=== PATIENT | female | born 1995 | race Caucasian/White ===

== ENCOUNTER 2017-05-15 12:44 | Emergency (ER) | payer BC ==
[~2017-05-15] VITALS: Ht 157.5 cm; Wt 47.8 kg
[~2017-05-15 12:44] MED LIST: ABILIFY5 MG PO; BUPROPION HCL100 M1 PO; DAILY VALUE1 EACH PO; Desyrel PO; IMITREX100 MG PO; JUNEL FE 1/21 TABLET PO; LAMICTAL100 MG PO; LAMICTAL200 MG PO; LATUDA20 MG PO; MIRALAX, GLYCOL1 PK1 PO; NEOSPORIN OINTM30 GM TP; ORTHO CYCLEN1 TABLET PO; PROZAC40 MG PO; SINGULAIR10 MG PO; TRAZODONE HCL50 MG PO
[2017-05-15 14:08] LABS: HEMATOCRIT 38.5 % (36.0-46.0); MCH 31.2 PG (29.0-34.0); MCHC 34.8 G/DL (30.0-36.0); MCV 89.5 FL (83-99); MEAN PLAT.VOLUME 9.6 uM^3 (9.5-12.4); PLATELET COUNT 227 K/uL (156-360); RBC DIS.WIDTH-CV 11.7 % (11.8-14.6); RBC DIS.WIDTH-SD 38.1 % (39-53); WHITE BLOOD COUNT 5.4 K/uL (4.1-10.2)
[2017-05-15 14:15] LABS: CHLORIDE 106 mEq/L (99-109); POTASSIUM 3.9 mEq/L (3.7-5.4); SODIUM 140 mEq/L (136-147)
[2017-05-15 14:18] LABS: GLUCOSE 102 mg/dL (70-99)
[2017-05-15 14:19] LABS: ANION GAP 10 MEQ/L (2-14)
[2017-05-15 14:20] LABS: TOTAL BILIRUBIN 0.3 mg/dL (0.0-1.0)
[2017-05-15 14:21] LABS: ALKALINE PHOSPHATASE 39 IU/L (3-129); GFR ESTIMATE (CALCULATED) > 59 mL/min/
[2017-05-15 14:22] LABS: UREA NITROGEN (BUN) 7 mg/dL (9-23)
[2017-05-15 14:31] LABS: QUANTITATIVE HCG < 4.0 MIU/ML
[2017-05-15] MEDS ORDERED: TRAMADOL HCL50 MG PO (15:34)
[2017-05-15] MEDS ORDERED: STOOL SOFTENER100 MG PO (15:34)
[2017-05-15 15:56] LABS: ADD MIUA? YES; BILIRUBIN NEGATIVE; BLOOD NEGATIVE; COLOR AMBER ((YELLOW)); GLUCOSE (STRIP) NEGATIVE; KETONES NEGATIVE; LEUKOCYTES TRACE; NITRITE NEGATIVE; PROTEIN (STRIP) NEGATIVE; SPECIFIC GRAVITY 1.013 (1.000-1.030); UROBILINOGEN 0.2 MG/DL (0.2-1.0)
[2017-05-15 16:17] LABS: RED BLOOD CELLS NONE SEEN /HPF (0-5)
[2017-05-15 16:18] LABS: BACTERIA NONE SEEN /HPF; EPITHELIAL CELLS RARE /HPF; MUCUS NONE SEEN /LPF; UCUL ADDED? NO; WHITE BLOOD CELLS RARE /HPF (0-5)
[2017-05-15 16:21] LABS: LIPASE 20 U/L (1.0-51.0)
[2017-05-15] MEDS ORDERED: CITRATE OF MAG296 ML PO (17:31)
[2017-05-15 18:10] VITALS: BP 97/73
== END 2017-05-15 18:10 | disposition home or self-care (01) ==
LOC: EME 12:44
DX: R10.32 Left lower quadrant pain (principal); Z88.5 Allergy status to narcotic agent; Z88.8 Allergy status to other drugs, medicaments and biological substances
CPT/HCPCS: 74022; 76856; 80053; 81003; 83690; 84702; 85027; 99281; 99284; J0696

== ENCOUNTER → 2017-08-07 | Outpatient (CLI) | payer BC ==
[~2017-08-07] MED LIST changes: +CITRATE OF MAG296 ML PO; +STOOL SOFTENER100 MG PO; +TRAMADOL HCL50 MG PO
[2017-08-07 17:24] LABS: CSF TUBE NUMBER TUBE #4
[2017-08-07 17:25] LABS: APPEARANCE CLEAR/COLORLESS; RED CELL COUNT 0 /MM^3 (0-1); WHITE CELL COUNT 0 /MM^3 (0-5)
[2017-08-07 17:26] LABS: CSF PROTEIN 37 mg/dL (15-45)
[2017-08-07 17:28] LABS: CSF EOSINOPHILS ND % (0-25); MONONUCLEAR WBC'S ND % (50-90); POLYNUCLEAR WBC'S ND % (0-3)
[2017-08-07 17:31] LABS: GLUCOSE, CSF 70 mg/dL (40-80)
[2017-08-09 21:06] LABS: Albumin, CSF 17.1 mg/dL (8.0-42.0); IgG Index, CSF 0.53 index (<0.66); IgG, CSF 1.4 mg/dL (0.8-7.7); IgG, Serum 767 mg/dL (694-1618); Synthesis Rate IgG, CSF -1.9 mg/24 h (-9.9-3.3)
== END | disposition home or self-care (01) ==
LOC: RAD 14:50
PROVIDERS: Psychiatry & Neurology Clinical Neurophysiology
PROC: 009U3ZZ Drainage of Spinal Canal, Percutaneous Approach (ICD-10-PCS; principal; 2017-08-07)
DX: G37.9 Demyelinating disease of central nervous system, unspecified (principal); G93.2 Benign intracranial hypertension; B99.9 Unspecified infectious disease
CPT/HCPCS: 62270; 77003; 82945; 83873 90; 83916 90; 84157; 86617 90; 86618 90; 87205; 89051

== ENCOUNTER → 2017-08-10 | Outpatient (CLI) | payer BC | END | disposition home or self-care (01) | LOC: RAD 08:00 | PROC: 3E0S3GC Introduction of Other Therapeutic Substance into Epidural Space, Percutaneous Approach (ICD-10-PCS; principal; 2017-08-10) | DX: G97.1 Other reaction to spinal and lumbar puncture (principal) | CPT/HCPCS: C1755 ==

== ENCOUNTER 2017-08-21 13:25 | Emergency (ER) | payer BC ==
[~2017-08-21] VITALS: Ht 152.4 cm; Wt 51.4 kg
[2017-08-21 13:53] VITALS: BP 120/77
[2017-08-21 16:44] LABS: HEMATOCRIT 37.5 % (36.0-46.0); HEMOGLOBIN 13.3 G/DL (11.9-15.5); MCHC 35.5 G/DL (30.0-36.0); MCV 90.1 FL (83-99); PLATELET COUNT 242 K/uL (156-360); RBC DIS.WIDTH-CV 11.6 % (11.8-14.6); RBC DIS.WIDTH-SD 38.3 % (39-53); RED BLOOD COUNT 4.16 M/uL (3.80-5.20); WHITE BLOOD COUNT 5.4 K/uL (4.1-10.2)
[2017-08-21 17:32] LABS: CHLORIDE 106 MEQ/L (99-109); CREATININE 0.7 MG/DL (0.6-1.3); GFR ESTIMATE (CALCULATED) > 59 mL/min/; GLUCOSE 79 mg/dL (70-99); POTASSIUM 4.1 MEQ/L (3.7-5.4); SERUM ETHYL ALCOHOL < 10 mg/dL; SODIUM 141 MEQ/L (136-147); UREA NITROGEN (BUN) 11 mg/dL (9-23)
[2017-08-21 17:39] LABS: QUANTITATIVE HCG < 4.0 MIU/ML
[2017-08-21 18:18] LABS: AMPHETAMINE NEGATIVE (500 ng/mL); BARBITURATES NEGATIVE (200 ng/mL); BENZODIAZEPINES PRESUMPTIVE POSITIVE (150 ng/mL); BUPRENORPHINE NEGATIVE (10 ng/mL); COCAINE NEGATIVE (150 ng/mL); METHADONE NEGATIVE (200 ng/mL); METHAMPHETAMINE NEGATIVE (500 ng/mL); OPIATES (MORPHINE) NEGATIVE (100 ng/mL); OXYCODONE NEGATIVE (100 ng/mL); PHENCYCLIDINE NEGATIVE (25 ng/mL); PROPOXYPHENE NEGATIVE (300 ng/mL); THC CANNABINOIDS NEGATIVE (50 ng/mL); TRICYCLIC ANTIDEPRESSANTS NEGATIVE (300 ng/mL)
[2017-08-21 19:04] LABS: BENZODIAZEPINES, URINE SCREEN Negative (200 ng/mL)
== END 2017-08-21 21:49 ==
LOC: EME 13:25
PROVIDERS: Emergency Medicine Emergency Medical Services
DX: F32.9 Major depressive disorder, single episode, unspecified (principal); F60.3 Borderline personality disorder; R45.851 Suicidal ideations; Z91.5 Personal history of self-harm; G43.909 Migraine, unspecified, not intractable, without status migrainosus; Z88.5 Allergy status to narcotic agent; Z88.6 Allergy status to analgesic agent
CPT/HCPCS: 80048; 84702; 84999; 85027; 90837; G0480

== ENCOUNTER 2018-01-17 14:01 | Emergency (ER) | payer OTHER ==
[~2018-01-17] VITALS: Ht 152.4 cm; Wt 60.3 kg
[2018-01-17 14:43] LABS: HEMATOCRIT 37.3 % (36.0-46.0); HEMOGLOBIN 13.1 G/DL (11.9-15.5); MCH 31.4 PG (29.0-34.0); MCHC 35.1 G/DL (30.0-36.0); MCV 89.4 FL (83-99); PLATELET COUNT 281 K/uL (156-360); RBC DIS.WIDTH-CV 12.1 % (11.8-14.6); RBC DIS.WIDTH-SD 39.4 % (39-53); RED BLOOD COUNT 4.17 M/uL (3.80-5.20); WHITE BLOOD COUNT 5.9 K/uL (4.1-10.2)
[2018-01-17 14:46] LABS: APPEARANCE CLEAR ((CLEAR)); BILIRUBIN NEGATIVE; BLOOD SMALL; COLOR STRAW ((YELLOW)); GLUCOSE (STRIP) NEGATIVE; KETONES NEGATIVE; LEUKOCYTES TRACE; NITRITE NEGATIVE; PROTEIN (STRIP) NEGATIVE; SPECIFIC GRAVITY 1.004 (1.000-1.030); UROBILINOGEN 0.2 MG/DL (0.2-1.0)
[2018-01-17 14:51] LABS: CHLORIDE 106 mEq/L (99-109); POTASSIUM 3.9 mEq/L (3.7-5.4); SODIUM 141 mEq/L (136-147)
[2018-01-17 14:53] LABS: GLUCOSE 104 mg/dL (70-99)
[2018-01-17 14:55] LABS: AMPHETAMINE NEGATIVE (500 ng/mL); BARBITURATES NEGATIVE (200 ng/mL); BENZODIAZEPINES PRESUMPTIVE POSITIVE (150 ng/mL); BUPRENORPHINE NEGATIVE (10 ng/mL); COCAINE NEGATIVE (150 ng/mL); METHADONE NEGATIVE (200 ng/mL); METHAMPHETAMINE NEGATIVE (500 ng/mL); OPIATES (MORPHINE) NEGATIVE (100 ng/mL); OXYCODONE NEGATIVE (100 ng/mL); PHENCYCLIDINE NEGATIVE (25 ng/mL); PROPOXYPHENE NEGATIVE (300 ng/mL); THC CANNABINOIDS NEGATIVE (50 ng/mL); TRICYCLIC ANTIDEPRESSANTS NEGATIVE (300 ng/mL)
[2018-01-17 14:56] LABS: BACTERIA RARE /HPF; EPITHELIAL CELLS RARE /HPF; MUCUS TRACE /LPF; RED BLOOD CELLS 0-5 /HPF (0-5)
[2018-01-17 14:57] LABS: CREATININE 0.8 mg/dL (0.6-1.3); GFR ESTIMATE (CALCULATED) > 59 mL/min/
[2018-01-17 14:58] LABS: UREA NITROGEN (BUN) 9 mg/dL (9-23)
[2018-01-17 15:05] LABS: QUANTITATIVE HCG < 4.0 MIU/ML
[2018-01-17 15:24] LABS: BENZODIAZEPINES, URINE SCREEN POSITIVE (200 ng/mL)
[2018-01-17 16:14] VITALS: BP 116/74
== END 2018-01-17 17:18 ==
LOC: EME 14:01
PROVIDERS: Physician Assistant
DX: F32.9 Major depressive disorder, single episode, unspecified (principal); R45.851 Suicidal ideations; F60.3 Borderline personality disorder; G89.29 Other chronic pain; M54.9 Dorsalgia, unspecified; M25.519 Pain in unspecified shoulder; Z91.5 Personal history of self-harm
CPT/HCPCS: 80048; 81003; 84702; 84999; 85027; 90837; 99281; 99285